=== PATIENT | female | born 1940 | race Caucasian/White ===

== ENCOUNTER 2017-10-17 12:41 | Inpatient (IN) ==
--- NOTE | 2017-10-17 12:53 | Discharge Summary ---
Orders not resulted at time of discharge: Pending orders 10/17/17 12:49 XR shoulder complete RT [XR] Routine Date of Encounter: 10/20/17 Time of Encounter: 06:45 - Discharge Diagnosis (1) Rotator cuff tear arthropathy of right shoulder Priority: Primary Status: Chronic (2) Status post reverse total replacement of right shoulder Priority: Primary Status: Acute (3) Hypertension Priority: Secondary Status: Chronic Qualifiers: Hypertension type: unspecified Qualified Code(s): I10 - Essential (primary ) hypertension (4) Hyperlipidemia Priority: Secondary Status: Chronic Qualifiers: Hyperlipidemia type: unspecified Qualified Code(s): E78.5 - Hyperlipidemia , unspecified (5) Obstructive sleep apnea Priority: Secondary Status: Chronic (6) Diabetes type 2, controlled Priority: Secondary Status: Acute Qualifiers: Diabetes mellitus penitentiary insulin use: unspecified penitentiary insulin use status Diabetes mellitus complication status: with unspecified complications Qualified Code(s): E11.8 - Type 2 diabetes mellitus with unspecified complications (7) Thyroid disease Priority: Secondary Status: Chronic - Hospital Course Hospital course: Ms. Guerra is a 77 year old female Status post right total shoulder replacement discharged home same day - Time Spent with Patient Total time spent providing and/or coordinating discharge services: - Discharge Medications Home Medications: Atorvastatin Calcium [Lipitor] 20 mg PO QPM 10/17/17 [History] Cyclobenzaprine [Flexeril] 10 mg PO TID PRN 10/17/17 [History] Dulaglutide [Trulicity] 1.5 mg SQ QWEEK 10/17/17 [History] Fluticasone Propionate Nasal [Flonase] 2 spr NS DAILY 10/17/17 [History] HYDROcodone/Acet 5/325 mg [[place] 5-325 mg] 1 tab PO TID PRN 10/17/17 [History] Ibuprofen [Motrin] 600 mg PO TID PRN 10/17/17 [History] Insulin Aspart Prot/Insuln Asp [Novolog Mix 70-30 Flexpen Syrn] 40 - 50 unit SQ BID 10/17/17 [History] Losartan [Cozaar] 25 mg PO DAILY 10/17/17 [History] OxyCODONE Immed Rel [Roxicodone 5 MG] 5 mg PO Q4HR PRN 5 Days #20 tablet [Rx] Pioglitazone [Actos] 45 mg PO DAILY 10/17/17 [History] Sertraline [Zoloft] 50 mg PO DAILY 10/17/17 [History] traZODone [TraZODone] 50 mg PO HS PRN 10/17/17 [History] Allergies/Adverse Reactions: 3 Allergy/AdvReac Type Severity Reaction Status Date / Time meperidine [From Demerol] AdvReac Nausea Verified 10/17/17 13:55 Primary care physician: Fred Peter MD - Patient Status Disposition: Home, Self-Care Condition: Good Functional capacity at discharge: independent ambulation Overall status at discharge: patient is progressing back to baseline - Discharge Instructions Follow Up With: Carisa Espino PAC [Physician Deburring Machine Operator] - 10/24/17 8:15 am Fred Peter MD [Primary Care Provider] - Additional Instructions: Discharge Instructions: Total Shoulder Please call [facility] ([phone]), your Primary Care Physician, or report to the Emergency Room if you have any of the following symptoms: Nausea, vomiting, fever greater that 101.5, swelling, chest pain, shortness of breath, increased pain/redness/drainage/odor for your incision site, numbness/ tingling, or any other concerning symptoms. ACTIVITY: Always keep your arm in the sling. Do not raise your arm away from your body. Do not use your arm to help with getting in or out of bed. No weight bearing permitted. Only perform those exercises given to you by your therapist. MEDICATIONS: Upon discharge resume your home medications. Take all the medications as prescribed. Take a stool softener if taking narcotic pain medications. Stool softeners are only effective if you drink enough fluids. Drink 6-8 glass of water or fluids a day, unless this is not allowed for another health problem. Despite using stool softeners, if you haven't had a bowel movement in 3 days, please switch to a gentle laxative. Gentle laxatives are sold over the counter. You should have a bowel movement within 24 hours, if not call the office. You will be discharged from the hospital with a prescription for pain medication. You are encouraged to decrease the use of narcotic pain medication as tolerated. Should you require a refill, please call the office. [facility] prescribes narcotic pain medication for only 4-6 weeks after surgery. If you require pain medication beyond this time period, you may be referred to your Primary Care Physician or to the Pain Clinic for further evaluation. Plan ahead for refills on pain medication as many narcotics either need to be picked up at the office or mailed. It is best to call 48-72 hours in advance of needing a prescription refill so you don't run out of medication. To help control the post-operative pain, you may take NSAIDs (Aleve,Advil, Motrin, Ibuprofen, Naprosyn) or Tylenol as prescribed on the bottle in addition to the pain medication. WOUND CARE: Leave the dressing on for 7-10 days. You may change the dressing if it becomes saturated greater than 50%. Do not get the dressing wet at anytime. Wash your hands with antibacterial soap, rinse and dry prior to any wound care. If you have adrian the visiting nurse or rehab facility can remove the stapes 10-14 days after surgery and place steri-strips across the wound. Leave the steri-strips in place until they fall off on their own. You may let water from the shower run on top of the steri-strips. If you do not have a visiting nurse or rehab facility, you will need to return to the office at 10-14 days for the adrian to be removed. If you have itching or redness around the dressing call the office. FOLLOW-UP: Please follow up with your surgeon in the orthopedic clinic, as scheduled
[2017-10-17] MEDS ORDERED: Famotidine 20 MG/2 ML VIAL IVP ONE (13:11)
[2017-10-17] MEDS ORDERED: CeFAZolin Syr 2,000MG/20 ML 2,000 MG/20 ML SYRINGE IVPB ONE (13:11)
[2017-10-17] MEDS ORDERED: Acetaminophen IV 1,000 MG/100 ML INFUS..BTL IVPB ONE (13:12)
[2017-10-17] MEDS ORDERED: Ringers Solution, Lactated 1,000 ML IVC SCH ×2 (13:15→16:08)
--- NOTE | 2017-10-17 13:15 | Anesthesia Evaluation PreOp ---
Date of Encounter: 10/17/17 Time of Encounter: 13:10 - Past History Planned Operation: Rt Total Shoulder Replacement Cardiac History: HTN, Hyperlipidemia Pulmonary History: RUBEN Dx OFFICE AGENT History: Denies Any Significant HX Other Medical History: Diabetes Type II, Thyroid, Other (Obese) Anesthesia History: No Prior Anesthetic Complications : No Drug use: opiates Medications and Allergies Aspirin [Lo-Dose Aspirin EC] 81 mg PO DAILY 10/17/17 [History] Atorvastatin Calcium [Lipitor] 20 mg PO QPM 10/17/17 [History] Cyclobenzaprine [Flexeril] 10 mg PO TID PRN 10/17/17 [History] Dulaglutide [Trulicity] 1.5 mg SQ QWEEK 10/17/17 [History] Fluticasone Propionate Nasal [Flonase] 2 spr NS DAILY 10/17/17 [History] HYDROcodone/Acet 5/325 mg [[place] 5-325 mg] 1 tab PO TID PRN 10/17/17 [History] Ibuprofen [Motrin] 600 mg PO TID PRN 10/17/17 [History] Insulin Aspart Prot/Insuln Asp [Novolog Mix 70-30 Flexpen Syrn] 100 unit SQ [History] Insulin Glargine,Hum.rec.anlog [Lantus Solostar] 100 unit SQ 10/17/17 [History] Lisinopril 2.5 mg PO DAILY 10/17/17 [History] Losartan [Cozaar] 25 mg PO DAILY 10/17/17 [History] Omeprazole [PriLOSEC] 40 mg PO DAILY 10/17/17 [History] OxyCODONE Immed Rel [Roxicodone 5 MG] 5 mg PO Q4HR PRN 5 Days #20 tablet [Rx] Pioglitazone [Actos] 45 mg PO DAILY 10/17/17 [History] Pravastatin Sodium [Pravachol] 40 mg PO DAILY 10/17/17 [History] Sertraline [Zoloft] 50 mg PO DAILY 10/17/17 [History] traZODone [TraZODone] 50 mg PO HS PRN 10/17/17 [History] 3 Allergy/AdvReac Type Severity Reaction Status Date / Time No Known Allergies Allergy Verified 10/17/17 13:11 - Meds/Allergy Pre-op Review Medications Reviewed: Yes Allergies Reviewed: Yes Beta Blockers on Current Med List: No Anesthesia Results - Labs Laboratory Tests 10/14/17 10/14/17 13:15 13:15 Hgb 11.2 L Hct 36.0 Plt Count 180 Sodium 138 Potassium 4.8 BUN 18 Creatinine 0.88 - Imaging EKG: report reviewed (SR) Anesthesia Exam O2 Sat Height 1.68 m Weight 107.501 kg Height: 5'6 Weight: 237 lbs NPO (# of Hours): MN Pain Scale: 0 - HEENT Pupil (Motor): Pupils equal, EOMI Mallampati: III Oral Opening: Less than or equal to 3 - OFFICE AGENT LOC: Oriented OFFICE AGENT Motor: Normal RUE, Normal LUE, Normal RLE, Normal LLE, Normal Face OFFICE AGENT Sensory: Normal: RUE, LUE, RLE, LLE, Face - Cardiac Rhythm: Regular Murmur: None JVD: No Carotid Bruit: No - Pulmonary Breath Sounds: bilateral Clear Respiratory Effort: Symmetrical Anesthesia Assess/Plan ASA Score: 3 (HTN RUBEN DM) Modified Paul Scale for Level of Consciousness: Cooperative, oriented, and tranquil Anesthetic Plan: General, Regional Monitoring Plan: Standard Monitors Recovery Plan: PACU (Discussed GA and RA, agrees to proceed)
--- NOTE | 2017-10-17 13:22 | History & Physical Report ---
Date of Encounter: 10/17/17 Time of Encounter: 13:21 24 Hour HP Update - Instructions Instructions: If the History and Physical is less than 30 days old and was completed prior to A.M. admission and or procedure and has NOT been updated on calendar day of procedure please complete this update prior to performing procedure. - Update Patient reports changes in Medical Condition: No Changes in examination, assessment, or condition: No Changes in Medication: No Preop tests/diagnostics Reviewed: Yes Surgery Remains Indicated: Yes Consent for Planned Operative Procedure(s) Verified: Yes - Pre-Operative Checklist Preoperative Checklist Indicated: No Prophylactic Antibiotic Ordered: Yes Is VTE Prophylaxis Indicated?: Yes
[2017-10-17] MEDS ORDERED: ROPIVACAINE HCL/PF 0.5% 30 ML VIAL ONE (13:32)
[2017-10-17] MEDS ORDERED: Bupivacaine/Clonidine Syringe 1 EACH SYRINGE ONE (13:33)
[2017-10-17] MEDS ORDERED: *HR* FentaNYL (PF) 100 MCG/2 ML VIAL ONE (13:34)
[2017-10-17] MEDS ORDERED: *HR* Propofol 200 MG/20 ML VIAL IVP ONE (13:34)
[2017-10-17] MEDS ORDERED: *HR* Midazolam HCl 2 MG/2 ML VIAL ONE (13:34)
[2017-10-17] MEDS ORDERED: *HR* Succinylcholine 200 MG/10 ML VIAL IVP ONE (13:36)
[2017-10-17] MEDS ORDERED: Lidocaine -MPF 2% 2 ML VIAL ONE (13:36)
[2017-10-17] MEDS ORDERED: Dexamethasone 4 MG/ML VIAL ONE (13:37)
[2017-10-17] MEDS ORDERED: Ondansetron 4 MG/2 ML VIAL ONE (13:37)
--- NOTE | 2017-10-17 13:59 | Anesthesia Procedures ---
Date of Encounter: 10/17/17 Time of Encounter: 13:50 Procedures: Anesthesia - Nerve Block Procedure Date: 10/17/17 Time: 13:50 Surgical Procedure: Right Total Shoulder Arthroplasty Checklist: Correct Patient Identifier, Correct procedure Correct side: Right Blood Thinner: No Monitor Applied: EKG, BP, Pulse Oximetry Supplemental Oxygen via Nasal Cannula (L/min): 2 Sedation: Versed (mg): 2 Sedation: Fentanyl (mcg): 100 Indication: Post Op Analgesia Pre-op Neuro Deficits: No Block Type: Supraclavicular Catheter placed: No Sterile Technique: Yes Ultrasound used: Yes Anatomy identified: Yes Visual spread of Local: Yes Neuro Stimulation: No Blood on Needle Aspiration: No Smooth Injection of Local: Yes Pain with Injection of Local: No Prep: Chlorhexadine Needle: 22 x 50 mm Stimuplex Local: 0.25% Bupivicaine w/Clonidine 20 mcg/cc, Ropivacaine Volume (cc): 30 Number of Attempts: 1 Complications: None/effective block Vitals: Last Vital Signs Temp 98.6 F 10/17/17 13:20 Pulse 68 10/17/17 13:55 Resp 16 10/17/17 13:55 BP 126/66 10/17/17 13:55 Pulse Ox 97 10/17/17 13:55
[2017-10-17] MEDS ORDERED: EPHEDrine 50 MG/ML VIAL ONE (14:43)
[2017-10-17] MEDS ORDERED: MORPHINE SUL Oral CONC 10 MG/0.5 ML ORAL.SYG SL PRN (14:56)
[2017-10-17] MEDS ORDERED: *HR* OxyCODONE Immed Rel 5 MG TABLET PO PRN ×3 (14:56→16:08)
--- NOTE | 2017-10-17 15:20 | Orthopedic Operative Note ---
Date of procedure: 10/17/17 Pre-op diagnosis: Right shoulder cuff tear arthropathy Post-op diagnosis: same Procedure: Procedure: Total Shoulder Replacment Reverse, right Estimated blood loss: 100 cc Hardware: Metal and polyethylene replacement: Arthrex medium glenoid baseplate , 2 4.5 screws. 1 6.5 screw, 39+4 glenosphere, 8 humeral stem, poly insert 6 Exam Under anesthesia: Full motion no instability Procedural Notes: Irreparable tear supraspinatus tendon Operative procedure: The patient was brought to the operating room and placed on the operating room table. After general anesthesia was administered the operative shoulder was examined. Findings were noted. The patient was placed in the modified beachchair position. All pressure points were padded appropriately. And the head was stabilized in the neutral position. The operative extremity was prepped and draped in the sterile surgical fashion. The patient received IV antibiotics prior to skin incision. A standard deltopectoral approach was made to the operative shoulder. Incision was made to the skin and subcutaneous tissue,hemo stasis was obtained with Bovie cautery. Using careful blunt dissection the cephalic vein was identified and mobilized medially. The deltopectoral interval was developed and the clavipectoral fascia was incised. The subscap was released off the lesser tuberosity and tagged with #2 FiberWire suture subscap was irreparable. The humerus was dislocated patient noted to have irreparable tear supraspinatus tendon, and the humeral cut was made along the anatomic neck. Anterior and posterior Bankart retractors were placed to expose the glenoid. The glenoid guide was seated and the centering hole was made. It was reamed with the appropriate reamer. The medium baseplate was seated and secured with (2) 4.5 screws and one 6.5 screw. The baseplate was irrigated and dried and the 39+4 Glenosphere was seated and secured with the Luong taper. The Luong taper was tested and found to be secure the humerus was redislocated and prepared with the diaphyseal reamers, followed by a broaching process up to the appropriate size 8 in the patient's anatomic version. The metaphyseal reamer was then utilized. Trial reduction found the shoulder to be relocatable. Trial components were removed and the 8 stem was impacted in place in the patient's anatomic version. Trial reduction found the shoulder to be relocatable and stable with the appropriate 6 Emma Trial component was removed and the real implant was seated and secured the shoulder was reduced. The shoulder had excellent motion and excellent stability and no evidence of dislocation. The deep tissue was irrigated with pulse irrigation. The deltopectoral interval was closed with a running #1 PDS suture, subcutaneous tissue was irrigated and closed with 0 PDS suture, the skin was closed with Dermabond. The patient was placed in a sterile dressing, abduction brace and extubated. The patient was then transferred to the recovery room in stable condition. Anesthesia: AYESHA Surgeon: Giorgio Mirza Was there an care team assistant present: No Estimated blood loss (cc): 100 Condition: stable Disposition: PACU
--- NOTE | 2017-10-17 15:58 | Anesthesia Evaluation Post Op ---
Date of Encounter: 10/17/17 Time of Encounter: 16:00 - Vital Signs Vital Signs: Vital Signs/O2 Sat/Glucose, Most Current Temp Pulse Resp BP Pulse Ox 10/17/17 15:54 97.9 F 65 18 160/85 99 10/17/17 15:44 58 16 150/79 97 10/17/17 15:34 63 18 157/88 92 10/17/17 15:24 97.1 F L 66 16 157/84 100 10/17/17 14:10 60 16 134/68 98 10/17/17 13:55 68 16 126/66 97 10/17/17 13:43 62 16 149/68 95 10/17/17 13:20 98.6 F 79 18 156/69 96 - Lungs Lungs: Clear Ascult./Percussion - Airway Airway: Non-obstructed - Cardiovascular Regular Rate - Mental Status Mental Status: Alert & Oriented, Answers Appropriately - Pain Pain Scale: 0 - Nausea Vomiting Nausea Vomiting: Not Present - Hydration Hydration: Ice chips - Discharge PostOp Status: Transfer Patient to floor
[2017-10-17] MEDS ORDERED: Ondansetron 4 MG/2 ML VIAL IVP PRN (16:08)
[2017-10-17] MEDS ORDERED: Sennosides 8.6 MG TABLET PO PRN (16:08)
[2017-10-17] MEDS ORDERED: Dextrose Gel 15 GM/37.5 ML TUBE PO PRN ×2 (16:08)
[2017-10-17] MEDS ORDERED: MOM Conc 10 ML UD.LIQ PO PRN (16:08)
[2017-10-17] MEDS ORDERED: Naloxone 0.4 MG/ML INJ IVP PRN (16:08)
[2017-10-17] MEDS ORDERED: *HR* Dextrose 50 % in Water (Syg) 50 ML SYRINGE IVP PRN (16:08)
[2017-10-17] MEDS ORDERED: Ibuprofen 600 MG TABLET PO PRN (16:08)
[2017-10-17] MEDS ORDERED: traZODone 50 MG TABLET PO PRN (16:08)
[2017-10-17] MEDS ORDERED: NON-FORMULARY MEDICATION 1 EACH EACH (Dulaglutide [Trulicity] 1.5 MG) SQ SCH (16:08)
[2017-10-17] MEDS ORDERED: D5% in Water 1,000 ML IVC PRN (16:08)
[2017-10-17] MEDS ORDERED: Temazepam 15 MG CAPSULE PO PRN (16:08)
[2017-10-17] MEDS ORDERED: *HR* Enoxaparin 30 MG/0.3 ML SYRINGE SQ SCH ×2 (18:00)
[2017-10-17 18:28] VITALS: BP 124/85
[2017-10-17] MEDS ORDERED: ceFAZolin 2,000 MG in Water for inj. (sterile) 20 ML IVP ONE (18:38)
[2017-10-17 18:43] LABS: Hematocrit 34.4 % (35.3-44.9)
[2017-10-17] MEDS ORDERED: Insulin LISPRO 300 UNITS/3 ML VIAL SQ SCH (21:00)
[2017-10-17] MEDS ORDERED: CeFAZolin Premix DUPLEX 2,000 MG/50 ML BAG IVPB ONE (21:00)
[2017-10-17] MEDS ORDERED: NON-FORMULARY MEDICATION 1 EACH EACH (Insulin Aspart Prot/Insuln Asp [Novolog Mix 70-30 Fl SQ SCH (21:00)
[2017-10-17] MEDS ORDERED: CeFAZolin Premix DUPLEX 2,000 MG/50 ML BAG IVPB SCH (22:00)
[2017-10-18] MEDS ORDERED: Fluticasone Propionate Nasal 50 MCG/SPRAY BOTTLE NS SCH (09:00)
[2017-10-18] MEDS ORDERED: *HR* Pioglitazone 45 MG TABLET PO SCH (09:00)
--- NOTE | 2017-10-22 08:20 | Physician Discharge Referral ---
Home Health/Hosp Referral Info Transfer to: Home Health Attending Provider: Provider in Charge Post Discharge: PCP - Diagnosis (1) Status post reverse total replacement of right shoulder Priority: Primary Status: Acute (2) Diabetes type 2, controlled Priority: Secondary Status: Chronic (3) Hyperlipidemia Priority: Secondary Status: Chronic (4) Hypertension Priority: Secondary Status: Chronic (5) Obstructive sleep apnea Priority: Secondary Status: Chronic (6) Rotator cuff tear arthropathy of right shoulder Priority: Secondary Status: Chronic - Respiratory Orders None Smoking Cessation: Smoking cessation has been advised. For more information, call the [place] Tobacco Quit Line at 2-322-YVCS-NOW. - Diet/Nutrition Diet/Nutrition Orders: Regular - Activity Activity Orders: Up ad jeremías, Ambulate - Services Needed Following services are medically necessary services: Nursing, Home Health Aide, Physical Therapy, Occupational Therapy Home Care Orders: Opsite dressing, leave intact until first post-operative visit. If dressing becomes >50% saturated, contact office, remove dressing and place appropriate dressing in its place. Do not allow for dressing to get wet. Shoulder Precautions x 6 weeks. Apply cold therapy wrap 3-6x/day for 20 minutes at a time. Encourage ambulation throughout the day. Use Incentive spirometer 10x/hour. Elevate affected extremity above heart as tolerated. NWB to affected upper extremity x 6 weeks. Will remove brace at first post-operative appointment. OK to remove during PT/ OT and Home exercises. - Transfer Medications Home Medications: Atorvastatin Calcium [Lipitor] 20 mg PO QPM 10/17/17 [History] Cyclobenzaprine [Flexeril] 10 mg PO TID PRN 10/17/17 [History] Dulaglutide [Trulicity] 1.5 mg SQ QWEEK 10/17/17 [History] Fluticasone Propionate Nasal [Flonase] 2 spr NS DAILY 10/17/17 [History] HYDROcodone/Acet 5/325 mg [[place] 5-325 mg] 1 tab PO TID PRN 10/17/17 [History] Ibuprofen [Motrin] 600 mg PO TID PRN 10/17/17 [History] Insulin Aspart Prot/Insuln Asp [Novolog Mix 70-30 Flexpen Syrn] 40 - 50 unit SQ BID 10/17/17 [History] Losartan [Cozaar] 25 mg PO DAILY 03/16/18 [History] OxyCODONE Immed Rel [Roxicodone 5 MG] 5 mg PO Q4HR PRN 5 Days #20 tablet [Rx] Pioglitazone [Actos] 45 mg PO DAILY 10/17/17 [History] Sertraline [Zoloft] 50 mg PO DAILY 10/17/17 [History] traZODone [TraZODone] 50 mg PO HS PRN 10/17/17 [History] Allergies/Adverse Reactions: 3 Allergy/AdvReac Type Severity Reaction Status Date / Time meperidine [From Demerol] AdvReac Nausea Verified 10/17/17 13:55 Certification: Further, I certify that my clinical findings support that this patient is homebound (i.e. absences from home require considerable and taxing effort and are for medical reasons or adventism services or infrequently or short duration when for other reasons) because: Homebound Reason: Patient requires assistance of a person or device to safely leave home Attestation: My signature below is to certify that this patient is under my care and that I, or nurse practitioner, or a physician's certified ophthalmic surgical assistant working with me, has a face-to -face encounter with this patient.
== END 2017-10-17 20:55 | disposition home or self-care (01) | DRG 483 ==
LOC: SAMDAY 12:41 → 3NENU 17:34
PROVIDERS: ADMIT Orthopaedic Surgery; ATTEND Orthopaedic Surgery

== ENCOUNTER 2020-05-15 16:12 | Inpatient (IN) ==
[2020-05-15] MEDS ORDERED: 0.9 % Sodium Chloride 1,000 ML IVC ONE (16:19)
[2020-05-15] MEDS ORDERED: Ondansetron 4 MG/2 ML VIAL IVP ONE (16:19)
[2020-05-15] MEDS ORDERED: Azithromycin 500 MG in 0.9 % Sodium Chloride 250 ML IVPB ONE (16:43)
[2020-05-15] MEDS ORDERED: Dexamethasone 4 MG/ML VIAL IVP STA (16:43)
[2020-05-15] MEDS ORDERED: cefTRIAXone 1,000 MG in Water for inj. (sterile) 10 ML IVP ONE (16:43)
[2020-05-15 17:39] LABS: Basophils % 0.2 %; Eosinophils % 0.2 %; Immature Granulocytes % 0.5 % (0-4); Lymphocytes # 0.5 K/mcL (0.6-4.6); Lymphocytes % 7.8 %; Mean Corpuscular HGB Conc 32.4 g/dL (31.6-35.5); Mean Corpuscular Hemoglobin 27.6 pg (28.0-33.3); Mean Corpuscular Volume 85.4 fL (83.0-100.0); Monocytes # 0.4 K/mcL (0.0-1.3); Monocytes % 6.2 %; Neutrophils # 5.4 K/mcL (1.6-8.9); Platelet Count 203 K/mcL (140-400); Red Blood Count 3.98 M/mcL (3.82-4.97); Red Cell Distribution Width 13.2 % (11.5-14.5); Segmented Neutrophils % 85.1 %; White Blood Count 6.3 K/mcL (4.3-11.1)
[2020-05-15 17:57] LABS: Alanine Aminotransferase 26 Units/L (7-52); Albumin 3.4 g/dL (3.5-5.7); Alkaline Phosphatase 84 Units/L (34-104); Aspartate Amino Transferase 31 Units/L (13-39); BUN/Creatinine Ratio 24 (6-26); Bilirubin,Total 0.4 mg/dL (0.3-1.0); Blood Urea Nitrogen 20 mg/dL (8-23); Calcium 9.3 mg/dL (8.6-10.3); Carbon Dioxide 24 mEq/L (23-29); Chloride 98 mEq/L (98-107); Globulin 3.4 g/dL (2.4-3.5); Glucose 333 mg/dL (70-105); Osmolality,Calculated 290 (280-300); Potassium 3.9 mEq/L (3.5-5.1); Sodium 132 mEq/L (136-145); Total Protein 6.8 g/dL (6.4-8.9); Troponin I < 0.03 ng/mL (< 0.04); eGFR For African Americans > 60 (> 60); eGFR For Non-African Americans > 60 (> 60)
[2020-05-15] MEDS ORDERED: Dextrose Gel 15 GM/37.5 ML TUBE PO PRN ×2 (20:41)
[2020-05-15] MEDS ORDERED: D5% in Water 1,000 ML IVC PRN (20:41)
[2020-05-15] MEDS ORDERED: *HR* Dextrose 50 % in Water (Vial) 50 ML VIAL IVP PRN (20:41)
[2020-05-15] MEDS ORDERED: Ondansetron 4 MG/2 ML VIAL IVP PRN (20:42)
[2020-05-15] MEDS ORDERED: Naloxone 0.4 MG/ML INJ IVP PRN (20:42)
[2020-05-15] MEDS ORDERED: Insulin LISPRO 300 UNITS/3 ML VIAL SQ SCH (20:45)
[2020-05-15] MEDS ORDERED: Insulin DETEMIR 100 UNIT/ML X5UNITS SQ SCH (21:00)
[2020-05-15 21:10] LABS: Estimated Average Glucose 286 mg/dl
[2020-05-16] MEDS ORDERED: *HR* Heparin 5,000 UNIT/ML VIAL SQ SCH (06:30)
[2020-05-16] MEDS: Insulin LISPRO 300 UNITS/3 ML VIAL SQ SCH ×6 (07:43→21:22)
[2020-05-16 08:37] LABS: Hematocrit 33.3 % (35.3-44.9); Hemoglobin 10.7 g/dL (11.5-15.4); Mean Corpuscular HGB Conc 32.1 g/dL (31.6-35.5); Mean Corpuscular Hemoglobin 27.9 pg (28.0-33.3); Mean Corpuscular Volume 86.7 fL (83.0-100.0); Mean Platelet Volume 10.1 fL (9.4-12.4); Platelet Count 224 K/mcL (140-400); Red Blood Count 3.84 M/mcL (3.82-4.97); Red Cell Distribution Width 13.1 % (11.5-14.5)
[2020-05-16 08:56] LABS: Fibrinogen 538 mg/dL (169-393)
[2020-05-16] MEDS ORDERED: cefTRIAXone 1,000 MG in 0.9 % Sodium Chloride Mini Bag 100 ML IVPB SCH ×2 (09:00→16:00)
[2020-05-16] MEDS ORDERED: Insulin DETEMIR 100 UNIT/ML X5UNITS SQ SCH ×2 (09:00→21:00)
[2020-05-16 09:02] LABS: D-Dimer 1032 ng/mLFEU (0-500)
[2020-05-16] MEDS: Dexamethasone 4 MG/ML VIAL IVP SCH (09:16)
[2020-05-16 09:36] LABS: Alanine Aminotransferase 24 Units/L (7-52); Albumin 3.2 g/dL (3.5-5.7); Alkaline Phosphatase 75 Units/L (34-104); Aspartate Amino Transferase 24 Units/L (13-39); BUN/Creatinine Ratio 27 (6-26); Bilirubin,Total 0.3 mg/dL (0.3-1.0); Blood Urea Nitrogen 23 mg/dL (8-23); C-Reactive Protein 127 mg/L (Less than 10); Calcium 8.7 mg/dL (8.6-10.3); Carbon Dioxide 27 mEq/L (23-29); Chloride 101 mEq/L (98-107); Creatine Kinase 147 Units/L (30-223); Globulin 3.3 g/dL (2.4-3.5); Glucose 283 mg/dL (70-105); Lactate Dehydrogenase 241 Units/L (140-271); Osmolality,Calculated 298 (280-300); Potassium 3.9 mEq/L (3.5-5.1); Sodium 137 mEq/L (136-145); Total Protein 6.5 g/dL (6.4-8.9); eGFR For African Americans > 60 (> 60); eGFR For Non-African Americans > 60 (> 60)
[2020-05-16 10:57] LABS: Monocytes # 0.2 K/mcL (0.0-1.3); Neutrophils # 2.7 K/mcL (1.6-8.9)
[2020-05-16 11:18] LABS: Platelet Clumps Few (Not Present); Platelet Estimate Normal (Normal)
[2020-05-16 11:19] LABS: Reactive Lymphocytes Present (Not Present)
[2020-05-16] MEDS ORDERED: Insulin DETEMIR 100 UNIT/ML X5UNITS SQ ONE (12:21)
[2020-05-16] MEDS: Furosemide 20 MG/2 ML VIAL IVP SCH (13:21)
[2020-05-16] MEDS ORDERED: Insulin LISPRO 300 UNITS/3 ML VIAL SQ SCH ×2 (16:56→21:00)
[2020-05-16] MEDS ORDERED: Insulin LISPRO 300 UNITS/3 ML VIAL SQ ONE (17:00)
[2020-05-16] MEDS ORDERED: Azithromycin 500 MG in 0.9 % Sodium Chloride 250 ML IVPB SCH (17:00)
[2020-05-16] MEDS: cefTRIAXone 1,000 MG in Water for inj. (sterile) 10 ML IVP SCH (17:37)
[2020-05-16] MEDS ORDERED: Dexamethasone 4 MG/ML VIAL IVP SCH (20:45)
[2020-05-16] MEDS: Insulin DETEMIR 100 UNIT/ML X5UNITS SQ SCH (21:56)
[2020-05-17] MEDS: *HR* Enoxaparin 40 MG/0.4 ML SYRINGE SQ SCH (06:21)
[2020-05-17 07:43] LABS: Alanine Aminotransferase 21 Units/L (7-52); Albumin 3.4 g/dL (3.5-5.7); Albumin/Globulin Ratio 1.1 (1.1-2.2); Alkaline Phosphatase 70 Units/L (34-104); Aspartate Amino Transferase 24 Units/L (13-39); BUN/Creatinine Ratio 37 (6-26); Bilirubin,Total 0.2 mg/dL (0.3-1.0); Blood Urea Nitrogen 28 mg/dL (8-23); Calcium 8.8 mg/dL (8.6-10.3); Carbon Dioxide 25 mEq/L (23-29); Chloride 101 mEq/L (98-107); Globulin 3.1 g/dL (2.4-3.5); Glucose 123 mg/dL (70-105); Osmolality,Calculated 289 (280-300); Potassium 3.7 mEq/L (3.5-5.1); Sodium 136 mEq/L (136-145); Total Protein 6.5 g/dL (6.4-8.9); eGFR For African Americans > 60 (> 60); eGFR For Non-African Americans > 60 (> 60)
[2020-05-17] MEDS: Insulin LISPRO 300 UNITS/3 ML VIAL SQ SCH ×4 (07:55→20:27)
[2020-05-17 09:12] LABS: Basophils % 0.2 %; Eosinophils % 0.4 %; Hematocrit 32.9 % (35.3-44.9); Hemoglobin 10.3 g/dL (11.5-15.4); Immature Granulocytes % 0.4 % (0-4); Lymphocytes % 23.9 %; Mean Corpuscular HGB Conc 31.3 g/dL (31.6-35.5); Mean Corpuscular Volume 86.4 fL (83.0-100.0); Mean Platelet Volume 9.9 fL (9.4-12.4); Monocytes # 0.8 K/mcL (0.0-1.3); Neutrophils # 5.5 K/mcL (1.6-8.9); Platelet Count 282 K/mcL (140-400); Red Blood Count 3.81 M/mcL (3.82-4.97); Red Cell Distribution Width 13.2 % (11.5-14.5); Segmented Neutrophils % 65.1 %; White Blood Count 8.4 K/mcL (4.3-11.1)
[2020-05-17] MEDS: cefTRIAXone 1,000 MG in Water for inj. (sterile) 10 ML IVP SCH (09:47)
[2020-05-17] MEDS: Azithromycin 250 MG TABLET PO SCH (09:48)
[2020-05-17] MEDS: Dexamethasone 4 MG/ML VIAL IVP SCH (09:48)
[2020-05-17] MEDS: Cholecalciferol (D-3) 1,000 UNIT (25MCG) TABLET PO SCH (09:48)
[2020-05-17] MEDS: Furosemide 20 MG/2 ML VIAL IVP SCH (09:48)
[2020-05-17] MEDS: Insulin DETEMIR 100 UNIT/ML X5UNITS SQ SCH ×2 (09:49→20:27)
[2020-05-17] MEDS: Cyanocobalamin (B-12) 1,000 MCG TABLET PO SCH (09:49)
[2020-05-17 10:40] LABS: Reactive Lymphocytes Present (Not Present)
[2020-05-18] MEDS ORDERED: 0.9 % Sodium Chloride 250 ML ONE (00:15)
[2020-05-18] MEDS: *HR* Enoxaparin 40 MG/0.4 ML SYRINGE SQ SCH (05:29)
[2020-05-18] MEDS: Azithromycin 250 MG TABLET PO SCH (08:07)
[2020-05-18] MEDS: Cyanocobalamin (B-12) 1,000 MCG TABLET PO SCH (08:07)
[2020-05-18] MEDS: Cholecalciferol (D-3) 1,000 UNIT (25MCG) TABLET PO SCH (08:07)
[2020-05-18] MEDS: cefTRIAXone 1,000 MG in Water for inj. (sterile) 10 ML IVP SCH (08:07)
[2020-05-18] MEDS: Dexamethasone 4 MG/ML VIAL IVP SCH (08:08)
[2020-05-18] MEDS: Furosemide 20 MG/2 ML VIAL IVP SCH (08:09)
[2020-05-18] MEDS: Insulin DETEMIR 100 UNIT/ML X5UNITS SQ SCH (08:09)
[2020-05-18] MEDS: Insulin LISPRO 300 UNITS/3 ML VIAL SQ SCH ×3 (09:00→16:35)
[2020-05-18 12:50] VITALS: BP 160/92
== END 2020-05-18 16:45 | disposition home or self-care (01) | DRG 177 ==
LOC: EMEROOARM 16:12 → 2NENU 16:12 → SUATTDRO 21:51 → 2NENU 22:27 → SUATTDRO 05-16 14:04
PROVIDERS: ADMIT Internal Medicine; ATTEND Internal Medicine